=== PATIENT | male | born 1950 | race Caucasian/White ===

== ENCOUNTER 2022-04-10 15:01 | Inpatient (IN) | payer OTHER, MEDICAID ==
[~2022-04-10] VITALS: Ht 165.1 cm; Wt 82.3 kg
--- NOTE | 2022-04-10 15:01 | NUR ---
PT BROUGHT IN BY [facility], TRIAGED, TAKEN DIRECTLY OVER TO CT WITH NURSE.
[2022-04-10 15:05] VITALS: BP_SYST 153
--- NOTE | 2022-04-10 15:05 | NUR ---
Patient awake and alert biba from home c/o CVA symptoms. last well known was 0830 am before patient went to dialysis (M/W/). when patient arrived back from dialysis at 1430, family noted pt to be confused, have slurred speech and lethargic. per family baseline is AAOx4. hx of HTN, ESRD noted with AV fistula to left upper arm. BS 89 per EMS. noted to have facial drop to left side. weakness to lower extremities upon arrival. unable to communciate clearly. pt confused, unable to give name. Pt taken to CT scan via phyllis.
[2022-04-10] MEDS ORDERED: iohexoL 300 mgI/mL, 150 ML INFUS..BTL IV ONE (15:07)
--- NOTE | 2022-04-10 15:10 | NUR ---
# 20 gauge angiocath placed to RIGHT AC. Use of asceptic technique. Opsite placed over site. Blood return noted. Blood for lab drawn from site. Flushed with 10 cc of normal saline. No evidence of infiltration noted. Patient tolerated well.
--- NOTE | 2022-04-10 15:20 | NUR ---
ER Dr. HARRINGTON at bedside examining patient.
--- NOTE | 2022-04-10 15:25 | NUR ---
BLOOD SUGAR CHECKED NOTED AT 79. MD NOTIFIED.
--- NOTE | 2022-04-10 15:25 | NUR ---
CODE STROKE ACTIVATED AT THIS TIME.
--- NOTE | 2022-04-10 15:30 | NUR ---
EEKG performed at BS . Physician given copy of EKG for review.
[2022-04-10 15:40] LABS: BASOPHILS # (AUTO) 0.1 K/uL (0.0-0.2); BASOPHILS % (AUTO) 0.7 % (0.0-2.0); EOSINOPHILS # (AUTO) 0.3 K/uL (0.0-0.4); EOSINOPHILS % (AUTO) 2.5 % (0.0-4.0); HEMATOCRIT 38.2 % (36-54); HEMOGLOBIN 12.5 g/dL (14.0-18.0); LYMPHOCYTES # (AUTO) 1.9 K/uL (1.0-5.5); LYMPHOCYTES % (AUTO) 18.8 % (20.5-51.5); MEAN CORPUSCULAR HEMOGLOBIN 28 pg (27-31); MEAN CORPUSCULAR HGB CONC 33 % (32-36); MEAN CORPUSCULAR VOLUME 86 fL (79.0-98.0); MONOCYTES # (AUTO) 1.6 K/uL (0.0-1.0); MONOCYTES % (AUTO) 15.5 % (1.7-9.3); NEUTROPHILS # (AUTO) 6.5 K/uL (1.8-7.7); NEUTROPHILS % (AUTO) 62.5 % (40.0-70.0); RED BLOOD CELL COUNT(AUTO) 4.45 MIL/uL (4.2-6.2); RED CELL DISTRIBUTION WIDTH 22.2 % (9.0-15.0); WHITE BLOOD COUNT (AUTO) 10.4 K/uL (4.8-10.8)
[2022-04-10 15:49] LABS: ANION GAP 13 (5-15); CALCIUM 9.2 mg/dL (8.4-11.0); CHLORIDE 92 mmol/L (98-107); CREATININE 5.39 mg/dL (0.55-1.30); GLUCOSE 76 mg/dL (70-99); POTASSIUM 3.9 mmol/L (3.5-5.1); SODIUM SERUM 134 mmol/L (136-145); UREA NITROGEN, BLOOD 22 mg/dL (8-21)
[2022-04-10 15:52] LABS: PROTHROMBIN TIME 10.3 SECS (9.5-12.5)
--- NOTE | 2022-04-10 15:58 | NUR ---
MD MOTT (NEUROLOGIST) SPEAKING TO PATIENT VIA TELE NEURO.
--- NOTE | 2022-04-10 15:59 | NUR ---
DR HARRINGTON SPEAKING WITH NEURO
[2022-04-10] MEDS ORDERED: DEXTROSE 50% JECT 50 ML DISP.SYRIN IVP ONE (16:00)
[2022-04-10 16:06] LABS: ALANINE AMINOTRANSFERASE 14 U/L (12-78); ALBUMIN 3.9 g/dL (3.4-4.8); ASPARTATE AMINOTRANSFERASE 15 U/L (10-37); TOTAL BILIRUBIN 0.6 mg/dL (0.0-1.0)
[2022-04-10 16:26] LABS: PLATELET COUNT (AUTO) 122 K/uL (130-430)
--- NOTE | 2022-04-10 16:30 | NUR ---
SPOKE TO DAUGHTER ROSEMARIE. FAMILY ON THEIR WAY TO HOSPITAL. GAVE UPDATE TO FAMILY REGARDING CONDITION. PER FAMILY BASELINE ON PATIENT IS AAOX4, WALKY TALKY.
--- NOTE | 2022-04-10 17:00 | NUR ---
ADMISSION PAGING FOR ADMISSION PER FACESHEET: MEDICARE A&B PT DOES NOT HAVE PCP DR. MONAE IS INTERNATIONAL RECRUITER
[2022-04-10] MEDS ORDERED: LORA10CA PO (18:23)
[2022-04-10] MEDS ORDERED: AMLO10TA88 PO (18:23)
[2022-04-10] MEDS ORDERED: ATOR40TA68 PO (18:23)
[2022-04-10] MEDS ORDERED: ERGO1250 PO (18:23)
[2022-04-10] MEDS ORDERED: HYDR-4039 PO (18:23)
[2022-04-10] MEDS ORDERED: ZOFODT4 PO (18:23)
[2022-04-10] MEDS ORDERED: FLUT50BL (18:23)
[2022-04-10] MEDS ORDERED: PREG50CA63 PO (18:23)
[2022-04-10] MEDS ORDERED: LOSA50TA28 PO (18:23)
[2022-04-10] MEDS ORDERED: PANT40TA45 PO (18:23)
[2022-04-10] MEDS ORDERED: SEVE800T27 PO (18:23)
[2022-04-10] MEDS ORDERED: METO5TAB86 PO (18:23)
--- NOTE | 2022-04-10 18:26 | NUR ---
Admit bed requested Patient will be admitted to care of Dr. MONAE. Admitted to TELE unit. Diagnosis ACUTE ENCEPHALOPATHY Inpatient (Yes or No) YES Observation (Yes or No) NO Orientation concerns or request close to nursing station (Yes or No) YES Covid Status NEGATIVE On vent or bipap NO Isolation requirements NO Needs a sitter NO From Home (Yes or if No enter name of facility) YES Requires Dialysis (Yes or No) YES Med Rec Completed (Yes of No) YES
[2022-04-10] MEDS ORDERED: ONDANSETRON HCL 4 MG/2 ML VIAL IVP ONE (19:00)
--- NOTE | 2022-04-10 19:24 | NUR ---
REPORT GIVEN TO ELENA WHO WILL ASSUME CARE.
[2022-04-10 20:15] VITALS: BP_SYST 151
--- NOTE | 2022-04-10 20:15 | NUR ---
Transfer to 105A via ACLS protocol. Licensed nurse present. IV present no signs or symptoms of infiltration. REPORT GIVEN TO EDWIN OROZCO
--- NOTE | 2022-04-10 20:15 | NUR ---
pt.received via er-dept.pt.presents admit dx;r/o cva,acute encephalopathy.pt.primary language ghanaian. present. assessed the pt.pt.presents iv access location rt.antecubital.pt.to activity status:bedrest.diet status:renal.pt.presents hemo-dialysis hx.pt.presents h/d access location.lt.bicept.av-shunt.call light/telephone presented to the pt.
[2022-04-10] MEDS ORDERED: ASPIRIN 81 MG TABLET(ECOTRIN) PO ONE (21:30)
[2022-04-10] MEDS: D5/0.45 NS 1,000 ML IV SCH (21:56)
[2022-04-10] MEDS ORDERED: GLUCOSE (DEXTROSE) ORAL GEL -Adults PO PRN (22:15)
[2022-04-10] MEDS ORDERED: D5W 1,000 ML IV PRN (22:15)
[2022-04-10] MEDS ORDERED: DEXTROSE 50% JECT 50 ML DISP.SYRIN IVP PRN (22:15)
[2022-04-10] MEDS ORDERED: INSULIN REGULAR, HUMAN 100 UNITS/ML, 10 ML VIAL (humuLIN R) SUBCUT PRN (22:15)
--- NOTE | 2022-04-10 23:28 | NUR ---
CONSULT: CONSULT CALLED FOR DR. MELCHOR I SPOKE WITH INESS EXCHANGE REASON FOR CONSULT: DIALYSIS REQUESTING CONSULT: DR. MONAE PORTRAIT CONSULTANT PHONE NUMBER: [phone]
--- NOTE | 2022-04-10 23:39 | NUR ---
CONSULT: CONSULT CALLED FOR DR. SWAIN I SPOKE WITH ROBYN QUIROS REASON FOR CONSULT: ACUTE ENCEPHALOPATHY REQUESTING CONSULT: DR. MONAE FENDER FINISHER PHONE NUMBER: [phone]
--- NOTE | 2022-04-10 23:42 | NUR ---
I WILL SEND A MESSAGE TO DR. JULISSA Matamoros FOR HIS CONSULTATION SHE LIKE A TEXT MESSAGE INSTEAD OF USING EXCHANGE SERVICE
[2022-04-11] VITALS: BP_SYST 145
--- NOTE | 2022-04-11 05:56 | NUR ---
JUST A MESSAGE TO DR. JULISSA Arroyo IN REGARD OF CONSULTATION TO HIS CELL PHONE NUMBER
--- NOTE | 2022-04-11 06:38 | NUR ---
pt.assessed.blood glucose assessed value;87mg/dl.no c/o pain,nausea.iv access intact iv fluids infusing.general status stable./respiratory status stable;unlabored@room air.pt.capable to reposition self.call light/telephone placed w/in access of the pt. neuro check attended to q-4hrs.swallow bedside attended upon admission.
[2022-04-11 06:43] LABS: BASOPHILS # (AUTO) 0.1 K/uL (0.0-0.2); EOSINOPHILS # (AUTO) 0.3 K/uL (0.0-0.4); EOSINOPHILS % (AUTO) 4.3 % (0.0-4.0); HEMATOCRIT 36.3 % (36-54); HEMOGLOBIN 11.8 g/dL (14.0-18.0); LYMPHOCYTES # (AUTO) 1.5 K/uL (1.0-5.5); LYMPHOCYTES % (AUTO) 22.3 % (20.5-51.5); MEAN CORPUSCULAR HEMOGLOBIN 28 pg (27-31); MEAN CORPUSCULAR HGB CONC 33 % (32-36); MEAN CORPUSCULAR VOLUME 86 fL (79.0-98.0); MONOCYTES # (AUTO) 1.1 K/uL (0.0-1.0); MONOCYTES % (AUTO) 16.1 % (1.7-9.3); NEUTROPHILS # (AUTO) 3.9 K/uL (1.8-7.7); NEUTROPHILS % (AUTO) 56.3 % (40.0-70.0); PLATELET COUNT (AUTO) 106 K/uL (130-430); WHITE BLOOD COUNT (AUTO) 6.9 K/uL (4.8-10.8)
[2022-04-11 07:19] LABS: ALANINE AMINOTRANSFERASE 11 U/L (12-78); ALBUMIN 3.3 g/dL (3.4-4.8); ANION GAP 9 (5-15); ASPARTATE AMINOTRANSFERASE 12 U/L (10-37); CALCIUM 8.5 mg/dL (8.4-11.0); CHLORIDE 92 mmol/L (98-107); CREATININE 7.17 mg/dL (0.55-1.30); GLUCOSE 79 mg/dL (70-99); PHOSPHORUS 3.8 mg/dL (2.7-4.5); POTASSIUM 4.5 mmol/L (3.5-5.1); SODIUM SERUM 132 mmol/L (136-145); TOTAL BILIRUBIN 0.4 mg/dL (0.0-1.0); UREA NITROGEN, BLOOD 28 mg/dL (8-21)
[2022-04-11 07:59] LABS: RED CELL DISTRIBUTION WIDTH 22.8 % (9.0-15.0)
[2022-04-11 08:09] LABS: CHOLESTEROL 137 mg/dL (<200); HDL CHOLESTEROL 26 mg/dL (>45); LDL CHOLESTEROL 68 mg/dL (<100); TRIGLYCERIDES 272 mg/dL (30-150)
[2022-04-11 08:14] VITALS: BP_SYST 131; BP_SYST 151
[2022-04-11] MEDS ORDERED: ASPIRIN 81 MG TABLET(ECOTRIN) PO SCH (09:00)
--- NOTE | 2022-04-11 09:06 | NUR ---
DAUGHTER NAMED ROSEMARIE CALLED FOR UPDATE. BUT NEVER ANSWER. SAID CANNOT ANSWER AT THIS TIME.
[2022-04-11] MEDS ORDERED: ONDANSETRON 4 MG ODT TAB PO PRN (11:15)
[2022-04-11 11:26] VITALS: BP_SYST 157
[2022-04-11] MEDS ORDERED: LOSARTAN POTASSIUM 50 MG TABLET (COZAAR) PO ONE (11:45)
[2022-04-11] MEDS ORDERED: PANTOPRAZOLE SODIUM 40 MG TAB PO ONE (11:45)
[2022-04-11] MEDS ORDERED: amLODIPine BESYLATE 10 MG TABLET PO ONE (11:45)
[2022-04-11] MEDS ORDERED: ATORVASTATIN 20 MG TABLET PO ONE (11:45)
[2022-04-11] MEDS: SEVELAMER CARBONATE 800 MG TABLET PO SCH ×2 (12:16→18:08)
--- NOTE | 2022-04-11 12:41 | NUR ---
LATEST BS 89 MD/DL ENCOURAGE PATIENT TO EAT MORE. SEEN BY LATASHA RODRÍGUEZ OF DR MONAE
--- NOTE | 2022-04-11 12:54 | NUR ---
BOTH DAUGHTER PHONE NUMBER LEAVE A MESSAGE TO CALL US BACK REGARDING THE KIDNEY DOCTOR AN OUTPATIENT. FOR DR MELCHOR TO KNOW.
--- NOTE | 2022-04-11 13:34 | NUR ---
QUINTIN TO ELENA DAUGHTER REGARDING KIDNEY DOCTOR FROM OUTSIDE. SAID JOSE COVINGTON. CALLED DR MELCHOR OFFICE AND SOPKE TO RANJEET AND INFORMED HER THAT THE DOCTOR IS DR JOSE RAFAEL GARCIA
--- NOTE | 2022-04-11 13:42 | NUR ---
INFORMED DR MELCHOR THAT PATIENT GOES TO [facility].
--- NOTE | 2022-04-11 13:58 | NUR ---
PER NEPHRO MD DR MELCHOR, I PAGED DR JOSE RAFAEL GARCIA, A HOPPER ATTENDANT TOO TO INFORM HIM THAT THIS PT IS CONFINED HERE. SPOKE TO
--- NOTE | 2022-04-11 14:59 | NUR ---
NEPHRO MD DR JOSE RAFAEL GARCIA CALLED BACK AND NOTIFIED US THAT DR MELCHOR WILL CONTINUE TAKING CARE OF THE PT.
[2022-04-11] MEDS ORDERED: SEVELAMER HCL Non-Formulary 800 MG TABLET PO SCH (15:00)
[2022-04-11 15:38] VITALS: BP_SYST 149
--- NOTE | 2022-04-11 15:58 | NUR ---
Machine Long Goods Helper AMMONIA WORKER Tamiko responded to a generated referral for social service support. AMMONIA WORKER reviewed patient's admission assessment the following was found, Refer to [employer], "Yes, to ascertain family history". AMMONIA WORKER consulted with patient's assigned RN Amberly who shared patient's daughter, Meghann and Nick have contacted hospital to obtain updates on patient's status. Meghann Nick AMMONIA WORKER attempted contact, both numbers were unavailable AMMONIA WORKER will continue to be available.
[2022-04-11 16:18] VITALS: BP_SYST 151
[2022-04-11] MEDS: D5/0.45 NS 1,000 ML IV SCH (16:58)
--- NOTE | 2022-04-11 17:12 | NUR ---
LATEST BS 87 MG/DL. NO COVERAGE GIVEN.
--- NOTE | 2022-04-11 17:57 | NUR ---
DUE MEDS GIVEN AT THIS TIME. DAUGHTER AT THE BEDSIDE.
--- NOTE | 2022-04-11 18:14 | NUR ---
PATIENT FAMILY REFUSED TO WAIT FOR THE DOCTOR EVEN TO CALL THE ATTENDING TO LET KNOW THE STATUS OF THE PATIENT FOR POSSIBLE GOING HOME WITHOUT WAITING FOR DR MONAE.
--- NOTE | 2022-04-11 18:37 | NUR ---
PATIENT LEFT IN STABLE CONDITION. [facility] ID BAND REMOVED. IV ACCESS REMOVED. DISCHARGED AGAINST MEDICAL ADVICE SIGNED BY THE DAUGHTER ROSEMARIE. HER DAD IS IN STABLE CONDITION. HE DOES NOT NEED ANY CARE FOR NOW. ZAHRAA HALL CALLED THE [facility] FOR DIALYSIS TOMORROW. AND SAID FOLLOW UP CARE WITH THE PCP.
--- NOTE | 2022-04-11 19:00 | NUR ---
DR MONAE WAS INFORMED OF THE DECISION TO DISCHARGED AGAINST MEDICAL ADVICE. BUT UNFORTUNATELY PATIENTS FAMILY CANNOT WAIT. THEY WANT TO GO HOME. QUICKLY POSSIBLE.
[2022-04-11] MEDS ORDERED: hydrALAZINE HCL 25 MG TABLET PO SCH (21:00)
[2022-04-12] MEDS ORDERED: PANTOPRAZOLE SODIUM 40 MG TAB PO SCH (09:00)
[2022-04-12] MEDS ORDERED: LOSARTAN POTASSIUM 50 MG TABLET (COZAAR) PO SCH (09:00)
[2022-04-12] MEDS ORDERED: ATORVASTATIN 20 MG TABLET PO SCH (09:00)
[2022-04-12] MEDS ORDERED: amLODIPine BESYLATE 10 MG TABLET PO SCH (09:00)
== END 2022-04-11 18:27 | disposition left against medical advice (07) | DRG 69 ==
LOC: SED 15:01 → STU 18:04
PROVIDERS: ADMIT Internal Medicine; ATTEND Internal Medicine
DX: G45.9 Transient cerebral ischemic attack, unspecified (principal); G93.41 Metabolic encephalopathy; N18.6 End stage renal disease; I12.0 Hypertensive chronic kidney disease with stage 5 chronic kidney disease or end stage renal disease; E78.5 Hyperlipidemia, unspecified; E78.00 Pure hypercholesterolemia, unspecified; K21.9 Gastro-esophageal reflux disease without esophagitis; J44.9 Chronic obstructive pulmonary disease, unspecified; Z20.822 Contact with and (suspected) exposure to COVID-19; Z87.891 Personal history of nicotine dependence; Z99.2 Dependence on renal dialysis
CPT/HCPCS: 36415; 70450-TC; 70496; 70498; 71045; 76376; 80048; 80053; 80061; 82140; 82962; 83735; 84100; 84484; 85025; 85610-TC; 85730-TC; 86886; 86900; 86901; 87081; 93005; 96374; 96375; 99285; G0378; J2405; Q9967